=== PATIENT | female | born 1955 | race Caucasian/White ===

== ENCOUNTER 2017-12-13 19:16 | Emergency (ER) | payer BC ==
[2017-12-13 19:23] VITALS: BP 120/62; BMI 27.3
--- NOTE | 2017-12-13 20:23 | DR.GENAD ---
HPI - PCP Primary Care Physician: HERMAN - Complaint/Symptoms Chief Complaint Doctors Comments: Patient states she has tanya having left CVA and upper back pain and has been having problems since Nov 23 when she was diagnosed with a bladder infection and was started on antibiotics. States she saw her doctor recently and they started her on Levaquin and Azo for a UTI but she gets dizzy each time she takes the Levaquin. States she has had problems with dizziness in the past when her potassium was low. States she is a patient of Janis Brennan. States she has been having hot and cold spells for a long time but denies nausea, vomiting, hematuria or veronica. States she has been having epigastric stomach pain with burning earlier but she is not hurting presently. states when she stood up in the kitchen tonight the pain was 8 of 10 in her left side. States she has had a hysterectomy but denies history of kidney stones. Chief Complaint:: PT C/O DIZZINESS AND WEAKNESS. PT STATES SHE HAS BEEN DIAGNOSED WITH A UTI (2 DAYS AGO).PT STATES SHE WAS STARTED ON LEVAQUIN AND SINCE SHE HAS STARTED ON THE MEDS SHE HAS BEEN FEELING THIS WAY. - Nurses notes reviewed Nurses Notes Review: Yes - Source History Provided: Patient - Mode of Arrival Mode of Arrival: Ambulatory - Timing Onset of Chief Complaint: 12/11/17 Came on: Gradually - Duration Duration: Intermittent How lon Duration: Weeks - Location Location: left CVA and upper back - Severity Severity: Moderate - Modifying Factors Worsens:: nothing Improves:: nothing PMH - PMH Past Medical History: Yes Past Medical History: Diabetes, Dyslipidemia, Hypertension Past Surgical History: Yes Surgical History: Hysterectomy - Family History History of Family Medical Conditions: No - Social History Does patient currently use any type of tobacco product: No Have you used tobacco products in the last 12 months: No Type of Tobacco Use: None Does any household member use tobacco: No Alcohol Use: None Do you use any recreational Drugs:: No Lives With: Spouse, Family Lives Where: Home - infectious screening In the last 2 months have you had wt loss of >10#?: NO Have you had fever, night sweats or hemotysis?: No Have you traveled outside the country in the last 6 months?: No Isolation: Standard ROS - Review of Systems Constitutional: No Symptoms Reported, Chills. negative: See HPI, Diaphoresis, Fever, Malaise, Weakness, Irritable, Fatigue, Loss of Appetite, Other Eyes: No Symptoms Reported ENTM: No Symptoms Reported. negative: See HPI, Ear Pain, Ear Discharge, Pulling on Ears, Hearing Loss, Nose Pain, Nose Discharge, Epistaxis, Nose Congestion, Mouth Pain, Mouth Swelling, Loose Teeth, Drooling, Throat Pain, Throat Swelling, Ear Foreign Body Respiratoy: No Symptoms Reported. negative: See HPI, Productive Cough, Non- Productive Cough, Moist Cough, Dry Cough, Hacking Cough, Barking Cough, Brassy Cough, Orthopnea, Short of Breath, Stridor, Wheezing, Hemoptysis, Other Cardiovascular: No Symptoms Reported. negative: See HPI, Chest Pain, Edema, Palpitations, Syncope, Cyanosis, Skin Mottling, Other Gastrointestinal/Abdominal: No Symptoms Reported, Abdominal Pain. negative: See HPI, Constipation, Diarrhea, Nausea, Vomiting, Food Intolerance, Other Genitourinary: No Symptoms Reported, Dysuria. negative: See HPI, Discharge, Frequency, Hematuria, Pain, Bleeding, Other Neurological: No Symptoms Reported, Dizziness. negative: See HPI, Anxiety, Depressed, Emotional Problems, Headache, Numbness, Paresthesia, Pre-existing Deficit, Seizure, Tingling, Tremors, Weakness, Problems Walking, Speech Problem , Other Musculoskeletal: No Symptoms Reported Integumentary: No Symptoms Reported. negative: See HPI, Change in Color, Change in Hair/Nails, Dryness, Lesions, Lumps, Rash, Itching, Wound, Bruises, Juandice, Other Hematologic/Lymphatic: No Symptoms Reported. negative: See HPI, Anemia, Blood Clots, Easy Bleeding, Easy Bruising, Swollen Glands, Lymphadenopathy, Other Endocrine: No Symptoms Reported Psychiatric: No Symptoms Reported. negative: See HPI, Anxiety, Depression, Hallucinations, Excessive crying, Suicidal, Other PE - Vital Signs Vitals: Temperature 98.1 F Pulse Rate 105 Respiratory Rate 20 Blood Pressure 120/62 O2 Sat by Pulse Oximetry 99 - General Limitations: No Limitations General Appearance: Alert, In No Apparent Distress - Head Head Exam: Normal Inspection, Atraumatic, Normocephalic - Eyes Eye exam: Normal Appearance, PERRL, EOMI. negative: Scleral Icterus, Conjunctival Injection, Nystagmus, Miosis, Mydrasis, Periorbital Swelling, Periorbital Tenderness, Other - ENT ENT Exam: Normal Exam, Normal Oropharynx, Normal External Ear Exam, Mucous Membranes Moist, TM's Normal Bilaterally External Ear Exam: Normal External Inspection TM/Canal Exam: Bilateral Normal Nose Exam: Normal Nose Exam Mouth Exam: Normal Inspection Throat Exam: Normal Inspection - Neck Neck Exam: Normal Inspection, Full ROM, Trachea Midline. negative: Tenderness, Meningismus, Lymphadenopathy, Thyromegaly, Other - Chest Chest Inspection: Normal Inspection, Symmetric Chest Wall Rise - Respiratory Respiratory Exam: Normal Lung Sounds Bilat Respiratory Exam: Bilateral Clear to Auscultation - Cardiovascular Cardiovascular Exam: Regular Rate, Normal Rhythm, Normal Heart Sounds. negative : Bradycardia, Tachycardia, Irregular Rhythm, Systolic Murmur, Diastolic Murmur , Rubs, Gallop, Clicks, JVD, +S1, +S2, +S3, +S4, Other - Abdominal Exam Abdominal Exam: Normal Inspection, Normal Bowel Sounds, Soft. negative: Distention, Tenderness, Guarding, Rebound, Rigidity, Dimnished Bowel Sounds, Hyperactive Bowel Sounds, Hypoactive Bowel Sounds, Organomegaly, Trauma, Incision, Ascites, Mass, Bruit, Pulsatile Mass, Hernia, Other Abdominal Tenderness: negative: RUQ, RLQ, LUQ, LLQ, Epigastrium, Suprapubic, Diffuse, Mild, Moderate, Severe, Other - Back Back Exam: Normal Inspection, Full ROM, (L) CVA Tenderness - Neurologic Neurological Exam: Alert, Oriented X3, CN II-XII Intact, Normal Gait, Reflexes Normal - Psychiatric Psychiatric Exam: Normal Affect, Normal Mood - Skin Skin Exam: Warm, Dry, Intact, Normal Color ROR - Labs Reviewed Laboratory Results Reviewed?: Yes (all labs and x-ray results reviewed and discussed with patient) Result Diagrams: 12/13/17 20:30 12/13/17 20:30 Laboratory: WBC 5.1 X10^3/uL (3.6-10.0) 12/13/17 20:30 RBC 4.59 X10^6/uL (3.5-5.4) 12/13/17 20:30 Hgb 13.4 g/dL (12.0-16.0) 12/13/17 20:30 Hct 38.7 % (36.0-47.0) 12/13/17 20:30 MCV 84.2 fL (80.0-100.0) 12/13/17 20: MCH 29.2 pg (27.0-34.0) 12/13/17 20: MCHC 34.6 g/dL (33.0-35.0) 12/13/17 20: RDW 13.5 % (11.6-16.5) 12/13/17 20: Plt Count 232 X10^3/uL (150.0-450.0) 12/13/17 20: MPV 7.6 fL (7.4-11.0) 12/13/17 20: Neut % 56.3 % (42.0-75.0) 12/13/17: Lymph % 30.2 % (21.0-51.0) 12/13/17: [place] % 10.7 % (0.0-13.0) 12/13/17 20: Eos % 1.8 % (0.9-2.9) 12/13/17 20: Baso % 1.0 % (0.2-1.0) 12/13/17 20: Neut # 2.9 x10^3/uL (2.2-4.8) 12/13/17 20: Lymph # 1.5 X10^3/uL (1.3-2.9) 12/13/17 20: [place] # 0.5 x10^3/uL (0.3-0.8) 12/13/17 20:30 Eos # 0.1 x10^3/uL (0.0-0.2) 12/13/17 20: Baso # 0.1 X10^3/uL (0.0-0.1) 12/13/17 20: Absolute Nucleated RBC 0.1 /100WBC 12/13/17 20:30 Sodium 140 mmol/L (136-145) 12/13/17 20:30 Corrected Sodium TNP 12/13/17 20: Potassium 3.5 mmol/L (3.5-5.1) 12/13/17 20: Chloride 100 mmol/L (98-107) 12/13/17 20: Carbon Dioxide 28.8 mmol/L (21-32) 12/13/17 20:30 BUN 20 mg/dL (7-18) H 12/13/17 20:30 Creatinine 1.01 mg/dL (0.55-1.02) 12/13/17 20:30 Est GFR (MDRD) Af Amer > 60 (>60) 12/13/17 20:30 Est GFR (MDRD) Non-Af 59 (>60) 12/13/17 20:30 Glucose 106 mg/dL (65-99) H 12/13/17 20:30 Calcium 9.2 mg/dL (8.5-10.1) 12/13/17 20:30 Corrected Calcium TNP 12/13/17 20:30 Total Bilirubin 1.10 mg/dL (0.2-1.0) H 12/13/17 20:30 AST 14 Units/L (15-37) L 12/13/17 20:30 ALT 25 Units/L (12-78) 12/13/17 20:30 Alkaline Phosphatase 48 Units/L (46-116) 12/13/17 20:30 Total Protein 7.7 g/dL (6.4-8.2) 12/13/17 20:30 Albumin 3.9 g/dL (3.4-5.0) 12/13/17 20:30 Globulin 3.8 g/dL (2.5-4.5) 12/13/17 20:30 Albumin/Globulin Ratio 1.0 Ratio (1.1-2.1) L 12/13/17 20:30 Amylase 30 Units/L (25-115) 12/13/17 20:30 Lipase 109 Units/L (73-393) 12/13/17 20:30 Specimen Type Cancelled 12/13/17 20:52 Urine Color Cancelled 12/13/17 20:52 Urine Appearance Cancelled 12/13/17 20:52 Urine pH Cancelled 12/13/17 20:52 Ur Specific [place] Cancelled 12/13/17 20:52 Urine Protein Cancelled 12/13/17 20:52 Urine Glucose (UA) Cancelled 12/13/17 20:52 Urine Ketones Cancelled 12/13/17 20:52 Urine Occult Blood Cancelled 12/13/17 20:52 Urine Nitrite Cancelled 12/13/17 20:52 Urine Bilirubin Cancelled 12/13/17 20:52 Urine Urobilinogen Cancelled 12/13/17 20:52 Ur Leukocyte Esterase Cancelled 12/13/17 20:52 Urine RBC Cancelled 12/13/17 20:52 Urine WBC Cancelled 12/13/17 20:52 Ur Squamous Epith Cells Cancelled 12/13/17 20:52 Ur Transition Epith Cell Cancelled 12/13/17 20:52 Ur Renal Epithelial Cell Cancelled 12/13/17 20:52 Calcium Oxalate Crystal Cancelled 12/13/17 20:52 Cystine Crystals Cancelled 12/13/17 20:52 Uric Acid Crystals Cancelled 12/13/17 20:52 Triple Phos Crystals Cancelled 12/13/17 20:52 Tyrosine Crystals Cancelled 12/13/17 20:52 Other Crystals Cancelled 12/13/17 20:52 Amorphous Sediment Cancelled 12/13/17 20:52 Urine Bacteria Cancelled 12/13/17 20:52 Hyaline Casts Cancelled 12/13/17 20:52 Granular Casts Cancelled 12/13/17 20:52 Fine Granular Casts Cancelled 12/13/17 20:52 Coarse Granular Casts Cancelled 12/13/17 20:52 WBC Casts Cancelled 12/13/17 20:52 Other Casts Cancelled 12/13/17 20:52 Urine Mucus Cancelled 12/13/17 20:52 Urine Trichomonas Cancelled 12/13/17 20:52 Urine Yeast Cancelled 12/13/17 20:52 Urine Sperm Cancelled 12/13/17 20:52 Ur Culture Indicated? Cancelled 12/13/17 20:52 Micro UA Comment Unable to perform (-) 12/13/17 20:48 - XRAY XRAY Interpreted by: Radiologist (No acute abnormality identified. Mild colonic diverticulosis, constipation ) - Diagnosis Discharge Problem: Diverticulosis of colon Urinary tract infection Qualifiers: Urinary tract infection type: acute cystitis Hematuria presence: without hematuria Qualified Code(s): N30.00 - Acute cystitis without hematuria Constipation Qualifiers: Constipation type: other constipation type Qualified Code(s): K59.09 - Other constipation - Discharge Plan Disposition: 01 HOME, SELF-CARE Condition: Stable Prescriptions: Bisacodyl EC [Dulcolax Tab EC 5 mg] 5 mg PO HS PRN #25 tab.ec PRN Reason: Constipation - Follow ups/Referrals Follow ups/Referrals: CLAUDIA BRENNAN [Primary Care Provider] - 3 days - Instructions Instructions: Urinary Tract Infection, Adult, Diverticulosis, Constipation, Adult, [id number]
[2017-12-13 20:39] LABS: BASOPHILS # (AUTO) 0.1 X10^3/uL (0.0-0.1); EOSINOPHILS # (AUTO) 0.1 x10^3/uL (0.0-0.2); EOSINOPHILS % (AUTO) 1.8 % (0.9-2.9); HEMATOCRIT 38.7 % (36.0-47.0); HEMOGLOBIN 13.4 g/dL (12.0-16.0); LYMPHOCYTES # (AUTO) 1.5 X10^3/uL (1.3-2.9); LYMPHOCYTES % (AUTO) 30.2 % (21.0-51.0); MEAN CORPUSCULAR HEMOGLOBIN 29.2 pg (27.0-34.0); MEAN CORPUSCULAR HGB CONC 34.6 g/dL (33.0-35.0); MEAN CORPUSCULAR VOLUME 84.2 fL (80.0-100.0); MEAN PLATELET VOLUME 7.6 fL (7.4-11.0); MONOCYTES # (AUTO) 0.5 x10^3/uL (0.3-0.8); MONOCYTES % (AUTO) 10.7 % (0.0-13.0); NEUTROPHILS # (AUTO) 2.9 x10^3/uL (2.2-4.8); NEUTROPHILS % (AUTO) 56.3 % (42.0-75.0); PLATELET COUNT 232 X10^3/uL (150.0-450.0); RED BLOOD COUNT 4.59 X10^6/uL (3.5-5.4); RED CELL DISTRIBUTION WIDTH 13.5 % (11.6-16.5); WHITE BLOOD COUNT 5.1 X10^3/uL (3.6-10.0)
[2017-12-13 20:52] LABS: ALANINE AMINOTRANSFERASE 25 Units/L (12-78); ALBUMIN 3.9 g/dL (3.4-5.0); ALKALINE PHOSPHATASE 48 Units/L (46-116); AMYLASE 30 Units/L (25-115); ASPARTATE AMINO TRANSFERASE 14 Units/L (15-37); BLOOD UREA NITROGEN 20 mg/dL (7-18); CALCIUM 9.2 mg/dL (8.5-10.1); CARBON DIOXIDE 28.8 mmol/L (21-32); CHLORIDE 100 mmol/L (98-107); CREATININE 1.01 mg/dL (0.55-1.02); LIPASE 109 Units/L (73-393); SODIUM 140 mmol/L (136-145); TOTAL PROTEIN 7.7 g/dL (6.4-8.2); eGFR BLACK RACES > 60 (>60); eGFR NON BLACK RACES 59 (>60)
--- NOTE | 2017-12-13 21:09 | CT ---
CT abdomen and pelvis without contrast Indication: 'Left CVA, back pain, UTI, patient states that she gets dizzy when she takes her UTI meds ' Technique: Helical CT images of the abdomen and pelvis were obtained without IV contrast. Reformatted images in the coronal and sagittal planes were also generated for review. Comparison: 08/04/2015 Findings: Lung bases are clear. No aggressive osseous lesions are identified. Within the limits of a noncontrast exam, the liver, gallbladder, spleen, pancreas and adrenals are un remarkable. Both kidneys and visualized ureters are normal without radiopaque stones or hydroureteron ephrosis. There is mild colonic diverticulosis without CT evidence of acute diverticulitis. Moderate stool is p resent throughout the colon, suggestive for constipation. There is no bowel inflammation or obstructi on. The appendix is normal. The abdominal aorta is mildly calcified without aneurysm. The urinary rashad dder is normal. The uterus is not identified and is likely absent. No free air, free fluid or bulky l ymphadenopathy is identified. Impression: No acute abnormality identified to explain patient's symptoms, within the limitations of a noncontras t exam. Mild colonic diverticulosis, constipation and additional incidental findings, as above. Reported By:
[2017-12-13 21:28] LABS: APPEARANCE,URINE SLIGHTLY HAZY (CLEAR); BACTERIA,URINE 1+ /HPF (Negative); COLOR,URINE ORANGE (YELLOW); SQUAMOUS EPITHELIAL CELL,UR FEW /HPF (NEGATIVE)
== END 2017-12-13 22:07 | disposition home or self-care (01) ==
LOC: ER 19:29
DX: K57.30 Diverticulosis of large intestine without perforation or abscess without bleeding (principal); N30.00 Acute cystitis without hematuria; K59.09 Other constipation
CPT/HCPCS: 36415; 74176; 80053; 81015; 82150; 83690; 85025; 87086; 99283